=== PATIENT | male | born 1990 | race Caucasian/White ===

== ENCOUNTER → 2016-05-06 | Outpatient (CLI) | payer OTHER ==
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
== END ==
LOC: BMCIMAGING 10:47
PROVIDERS: ATTEND Podiatrist Foot & Ankle Surgery
DX: M79.672 Pain in left foot (principal)

== ENCOUNTER → 2016-06-14 | Outpatient (CLI) | payer OTHER | LOC: BMCIMAGING 14:47 | PROVIDERS: ATTEND Podiatrist Foot & Ankle Surgery | DX: M79.672 Pain in left foot (principal) ==

== ENCOUNTER → 2017-12-30 | Outpatient (CLI) | payer OTHER ==
[~2017-12-30] MED LIST: IOPAMIDOL (ISOVUE-300) 100 ML BTL ONE
[2017-12-31 11:18] LABS: PLATELET COUNT 240 10^3/uL (150-400)
== END ==
LOC: FIMAGING 10:54
PROVIDERS: ATTEND Internal Medicine
DX: R10.31 Right lower quadrant pain (principal); K63.89 Other specified diseases of intestine
CPT/HCPCS: Q9967

== ENCOUNTER → 2018-05-26 | Outpatient (CLI) | payer OTHER | LOC: FIMAGING 09:04 | PROVIDERS: ATTEND Physician Assistant | DX: R10.84 Generalized abdominal pain (principal) ==

== ENCOUNTER 2018-05-28 13:57 | Emergency (ER) | payer OTHER ==
--- NOTE | 2018-05-28 14:08 | EDPHY ---
H & P Time Seen by Provider: 05/28/18 14:07 Constitutional: Initial Vital Signs Temperature (C) 36.7 C 05/28/18 14:06 Heart Rate 66 05/28/18 14:06 Respiratory Rate 18 05/28/18 14:06 Blood Pressure 145/92 H 05/28/18 14:06 O2 Sat (%) 99 05/28/18 14:06 O2 Delivery Mode Room Air Allergies/Adverse Reactions: No Known Allergies Allergy (Unverified 05/28/18 14:09) Home Medications: Medication Instructions Recorded Levsin 05/28/18 Medical Decision Making ED Course/Re-evaluation: CHIEF COMPLAINT: Right testicular pain HISTORY OF PRESENT ILLNESS: The patient is a 28 y/o male complaining of right testicular pain. Several months ago he noticed a lump on his groin right groin that was close to his body. However several days ago he developed "oscillating" right testicular pain that was deep in his testicle. No fever, headache, chest pain, shortness of breath, abdominal pain, urinary or bowel complaints, numbness, paresthesias. REVIEW OF SYSTEMS: A comprehensive 10 system review of systems is otherwise negative aside from elements mentioned in the history of present illness and medical decision making. PHYSICAL EXAM: HR, BP, O2 Sat, RR. Temp noted General Appearance: Alert, well hydrated, appropriate, and non-toxic appearing. Head: Atraumatic without scalp tenderness or obvious injury Eyes: Pupils equal, round, reactive to light and accommodation, EOMI, no trauma , no injection. Ears: Clear bilaterally, no perforation, normal landmarks Nose: Atraumatic, no rhinorrhea, clear. Throat: There is no erythema or exudates, no lesions, normal tonsils, mucus membranes moist. Neck: Supple, 2+ carotid upstroke, nontender, no lymphadenopathy. Respiratory: No retractions, no distress, no wheezes, and no accessory muscle use. Lungs are clear to auscultation bilaterally. Cardiovascular: Regular rate and rhythm, no murmurs, rubs, or gallops. Bilateral carotid, radial, dorsalis pedis, and posterior tibial pulses intact. Good capillary refill all extremities. Gastrointestinal: Abdomen is soft, nontender, non-distended, no masses, no rebound, no guarding, no peritoneal signs. : Normal testicle and no signs of epididymitis or torsion. Musculoskeletal: Normal active ROM of all extremities, atraumatic. Neurological: Alert, appropriate, and interactive. The patient has normal DTRs and non-focal cranial nerves, motor, sensory, and cerebellar exam. Skin: No rashes, good turgor, no nodules on palpation. Past medical history: GI problems Past surgical history: Denies Family history: Denies Social history: Lives in [place], employed, single DIAGNOSTICS/PROCEDURES/CRITICAL CARE TIME: Testicular US: DIFFERENTIAL DIAGNOSIS: The differential diagnosis for the patient's testicular pain included but was not limited to epididymitis, orchitis, referred pain from kidney stone, inguinal hernia, and torsion of the testicle. MEDICAL DECISION MAKING: The patient is a 28 y/o male presenting with right testicular pain. The patient has a normal exam including a normal testicular exam. I do not see any signs of epididymitis or testicular torsion. Testicular US and labs ordered. 1500: Patient care turned over to Dr. Hopper at shift change; testicular US still pending. - Data Points Laboratory Results: 05/28/18 05/28/18 14:35 14:35 Urine Color COLORLESS Urine Appearance CLEAR Urine pH 8.0 H (5.0-7.5) Ur Specific [place] 1.003 (1.002-1.030) Urine Protein NEGATIVE (NEGATIVE) Urine Ketones TRACE H (NEGATIVE) Urine Blood NEGATIVE (NEGATIVE) Urine Nitrate NEGATIVE (NEGATIVE) Urine Bilirubin NEGATIVE (NEGATIVE) Urine Urobilinogen NEGATIVE EU EU (0.2-1.0) Ur Leukocyte Esterase NEGATIVE (NEGATIVE) Urine RBC 1-3 /hpf /hpf (0-3) Urine WBC 1-3 /hpf /hpf (0-3) Ur Epithelial Cells NONE SEEN /lpf /lpf (NONE-1+) Urine Glucose NEGATIVE (NEGATIVE) C.trachomatis RNA (TMA) Pending N.gonorrhoeae RNA (TMA) Pending Departure - Departure Disposition: Home, Routine, Self-Care Clinical Impression: Right testicular pain Condition: Good Instructions: Testicle Pain (ED) Additional Instructions: 1. Follow up with a urologist. 2. Return to the Emergency Department for fever, worsening pain, inability to urinate or failure to improve within 72 hours. Referrals: Jaylan De Souza MD [Primary Care Provider] - As per Instructions Ozzie Casas MD [Medical Doctor] - As per Instructions Report Scribed for: Jeb Hdz Report Scribed by: ePggy Breaux Date of Report: 05/28/18 Time of Report: 14:10
[2018-05-28 15:50] VITALS: BP 128/80
[2018-05-29 15:04] LABS: GC AMPLIFICATION GENPROBE NEGATIVE (NEGATIVE)
== END 2018-05-28 15:49 | disposition home or self-care (01) ==
DX: N50.3 Cyst of epididymis (principal); N43.3 Hydrocele, unspecified